=== PATIENT | male | born 1945 | race Caucasian/White ===

== ENCOUNTER 2023-03-28 18:19 | Emergency (ER) | payer MEDICARE, OTHER, SELFPAY ==
[2023-03-28 18:29] VITALS: BP 140/89; PULSE 64; RESP 14; TEMP 36.8; O2SAT 98; BMI 28.5
--- NOTE | 2023-03-28 18:39 | CT_ITS ---
The [address] [address] Patient Name: NORA SHAH MRN: [id number] date: 1945 Sex: M Assigned Patient Location: ER Current Patient Location: ED.MAIN Accession/Order Number: [id number] Exam Date: 03/28/2023 18:45 Report Date: 03/28/2023 20:02 At the request of: BALDO EARZO Procedure: CT head/brain wo con CT head/brain wo con, 03/28/2023 6:45 PM EDT INDICATION: head injury COMPARISON: None. TECHNIQUE: Axial CT images of the brain from skull base to vertex, including portions of the face and sinuses, were obtained without contrast. Multiplanar reformatted images were generated and reviewed as needed. Dose reduction techniques were achieved by using automated exposure control and/or adjustment of mA and/or kV according to patient size and/or use of iterative reconstruction technique. FINDINGS: CEREBRUM: Age-appropriate atrophy is present, without visible acute hemorrhage or lesion. CEREBELLUM: No edema, hemorrhage, mass, acute infarction, or inappropriate atrophy. BRAINSTEM: No acute infarct, hemorrhage or gross structural abnormality. CSF SPACES: Ventricles, cisterns, and sulci are appropriate for age. No hydrocephalus, subarachnoid hemorrhage, or mass. SKULL: No mass or other significant visible lesion. SINUSES: There is mucosal thickening within the bilateral ethmoid air cells. ORBITS: Limited views are unremarkable. OTHER: None. IMPRESSION: Age-appropriate atrophy. Mucosal thickening within the bilateral ethmoid air cells consistent with sinusitis. No acute intracranial abnormality is otherwise identified. Electronically authenticated by: Ysabel RADER Date: 03/28/2023 20:02
--- NOTE | 2023-03-28 19:05 | ED.HEATRA1 ---
HPI - Head Injury General Chief complaint: Head Injury Stated complaint: HEAD LACERATION Time Seen by Provider: 03/28/23 19:05 Source: patient Mode of arrival: walk-in History of Present Illness HPI Narrative: pt Related Data Home Medications Medication Instructions Recorded Confirmed rivaroxaban 10 mg tablet (Xarelto) 10 mg PO DAILY 03/28/23 03/28/23 Allergies Allergy/AdvReac Type Severity Reaction Status Date / Time oxycodone Allergy Severe Verified 03/28/23 18:28 Exam Constitutional Vital Signs - 24 hr 03/28/23 18:29 Temperature 98.2 F Pulse Rate [Monitor] 64 Respiratory Rate 14 Blood Pressure [Left Arm] 140/89 H Pulse Oximetry 98 Oxygen Delivery Method Room Air Course Vital Signs Vital signs: Vital Signs Temperature 98.2 F 03/28/23 18:29 Pulse Rate 64 03/28/23 18:29 Respiratory Rate 14 03/28/23 18:29 Blood Pressure 140/89 H 03/28/23 18:29 Pulse Oximetry 98 03/28/23 18:29 Oxygen Delivery Method Room Air 03/28/23 18:29 Temperature 98.2 F 03/28/23 18:29 Pulse Rate 64 03/28/23 18:29 Respiratory Rate 14 03/28/23 18:29 Blood Pressure 140/89 H 03/28/23 18:29 Pulse Oximetry 98 03/28/23 18:29 Oxygen Delivery Method Room Air 03/28/23 18:29 Discharge Plan Discharge Chief Complaint: Head Injury Prescriptions / Home Meds: No Action Xarelto 10 mg tablet 10 mg PO DAILY Referrals: Physician,Non-Staff, MD [Primary Care Provider] - 1 week
[2023-03-28] MEDS: ADACEL DIPH,PERTUSS(ACELL),TET VAC/PF 0.5 ML ADULT SYRINGE IM (19:48)
--- NOTE | 2023-03-29 05:19 | ED.HEATRA1 ---
HPI - Head Injury General Chief complaint: Head Injury Stated complaint: HEAD LACERATION Time Seen by Provider: 03/28/23 19:05 Source: patient Mode of arrival: walk-in History of Present Illness HPI Narrative: the patient take care and sent also for his history of atrial fibrillation, after a table so fell down on the back of his head almost an hour before arrival while he was working in the garage, he denies any loss of consciousness he did had some bleeding from the injury and he does not remember the last time he had a tetanus booster Review of systems otherwise negative Related Data Home Medications Medication Instructions Recorded Confirmed rivaroxaban 10 mg tablet (Xarelto) 10 mg PO DAILY 03/28/23 03/28/23 Allergies Allergy/AdvReac Type Severity Reaction Status Date / Time oxycodone Allergy Severe Verified 03/28/23 18:28 Review of Systems ROS Status of ROS 10 or more systems reviewed and unremarkable except as noted in history and below Exam Narrative Exam Narrative: Nurses notes and vital signs reviewed and patient is not hypoxic. General: Well-appearing and in no apparent distress. Skin: Warm, dry, no pallor noted. No rash. Head: Normocephalic, and the back of the skull at the upper occipital area the patient have a laceration that is 3.5 cm linear, clean only cutting through the skin layer with no exposure of the underlying structures, no foreign body Neck: Supple, non-tender. Eye: Pupils are equal, round and EOMI. No scleral icterus. Ears, Nose, Mouth, and Throat: TM are clear, no nasal mucosal hypertrophy. Oral mucosa is moist, no posterior oropharynx erythema, uvula is mid-line Cardiovascular: Regular Rate and Rhythm without murmur, gallop or rub. Respiratory: No accessory muscle use or respiratory distress. Lungs are clear to auscultation, no wheezing, rales or rhonchi Chest Wall: no tenderness Back: No midline thoracic or lumbar vertebral tenderness. No CVA tenderness Musculoskeletal: normal ROM, no calf or popliteal tenderness, no lower extremity edema/swelling GI: Abdomen is soft, non-distended. Normal bowel sounds. No masses appreciated. No tenderness to palpation. No rebound, guarding, or rigidity noted. Neurological: A&O x4. No cranial nerve dysfunction observed. No truncal ataxia. Moves all extremities. Sensation intact. Psychiatric: Cooperative and interactive. Normal mood and affect. Constitutional Vital Signs - 24 hr 03/28/23 18:29 Temperature 98.2 F Pulse Rate [Monitor] 64 Respiratory Rate 14 Blood Pressure [Left Arm] 140/89 H Pulse Oximetry 98 Oxygen Delivery Method Room Air Course Vital Signs Vital signs: Vital Signs Temperature 98.2 F 03/28/23 18:29 Pulse Rate 64 03/28/23 18:29 Respiratory Rate 14 03/28/23 18:29 Blood Pressure 140/89 H 03/28/23 18:29 Pulse Oximetry 98 03/28/23 18:29 Oxygen Delivery Method Room Air 03/28/23 18:29 Temperature 98.2 F 03/28/23 18:29 Pulse Rate 64 03/28/23 18:29 Respiratory Rate 14 03/28/23 18:29 Blood Pressure 140/89 H 03/28/23 18:29 Pulse Oximetry 98 03/28/23 18:29 Oxygen Delivery Method Room Air 03/28/23 18:29 MDM - Head Injury MDM Narrative Medical decision making narrative: after cleaning the wound thoroughly with Betadine as well as normal saline the patient had four cindy applied Wound care advised and the patient also was provided with Tylenol for the pain The patient also had a tetanus booster Because of the patient history of head injury with the results with the patient was instructed for concussion precaution for the next few hours in addition to follow up CT had two more in the Emergency Department the patient otherwise to come back to the Emergency Room in case of any new symptoms if any symptoms of headache diffuse evidence of consciousness nausea or vomiting happened before his follow-up Discharge Plan Discharge Chief Complaint: Head Injury Clinical Impression: Concussion without loss of consciousness, Closed head injury Patient Disposition: Home, Self-Care Time of Disposition Decision: 20:28 Condition: Good Prescriptions / Home Meds: No Action Xarelto 10 mg tablet 10 mg PO DAILY Instructions: Concussion (ED), Head Injury (ED), Staple Care (ED) Stand Alone Forms: Portal Instructions Referrals: Barbie Swanson MD [Emergency Provider] - 1 week Physician,Non-Staff, [Primary Care Provider] - 1 week Discharge Date/Time: 03/28/23 20:52
== END 2023-03-28 20:52 | disposition home or self-care (01) ==
PROVIDERS: Emergency Provider Emergency Medicine
DX: S09.8XXA Other specified injuries of head, initial encounter (principal); S06.0X0A Concussion without loss of consciousness, initial encounter; S01.01XA Laceration without foreign body of scalp, initial encounter; W20.8XXA Other cause of strike by thrown, projected or falling object, initial encounter; Z23 Encounter for immunization; I48.91 Unspecified atrial fibrillation; Z79.01 Long term (current) use of anticoagulants
CPT/HCPCS: 12002; 70450; 90471; 90715; 99284

== ENCOUNTER 2023-03-29 19:06 | Emergency (ER) | payer MEDICARE, OTHER, SELFPAY ==
[2023-03-29 19:11] VITALS: BP 122/70; PULSE 68; RESP 14; TEMP 36.9; O2SAT 96; BMI 62.0
--- NOTE | 2023-03-29 19:20 | CT_ITS ---
[address] [address] Patient Name: NORA SHAH MRN: [id number] date: 1945 Sex: M Assigned Patient Location: ER Current Patient Location: Accession/Order Number: [id number] Exam Date: 03/29/2023 19:55 Report Date: 03/29/2023 20:40 At the request of: SCARLET MEJIA Procedure: CT head/brain wo con EXAM: CT head/brain wo con REASON FOR EXAM: Male, 77 years, head trauma follow up. TECHNIQUE: Computed tomography of the head is performed in the axial projection from the base of the skull to the vertex. Sagittal and coronal reconstructed images are performed. Dose reduction techniques were achieved by using automated exposure control and/or adjustment of mA and/or KVP according to patient size and/or use of iterative reconstruction technique. COMPARISON: 03/28/2023. FINDINGS: Atherosclerotic vascular calcifications are seen. Normal calvarium. There is mild prominence to the ventricles and sulci consistent with chronic cerebral volume loss. Normal brain parenchyma. Normal basal ganglia. Normal brainstem. The cerebellum is normal. There is no evidence for acute ischemia. There is no evidence for acute hemorrhage. The visualized paranasal sinuses are clear. IMPRESSION: Mild chronic involutional changes. No acute intracranial abnormality. Electronically authenticated by: PRICE THOMPSON Date: 03/29/2023 20:40
--- NOTE | 2023-03-29 20:30 | ED.HEATRA1 ---
HPI - Head Injury General Chief complaint: Head Injury Stated complaint: RECHECK HEAD INJURY Time Seen by Provider: 03/29/23 19:19 Source: patient Mode of arrival: walk-in History of Present Illness HPI Narrative: the patient's coming to the Emergency Room after he had hit his head yesterday evening with a table saw that fell on his head while he was in the garage, he is coming today as a follow-upp as instructed to do a CT head because it is anticoagulation intake he denies any nausea vomiting or headache have soreness only of the site of the injury Review of systems otherwise negative Related Data Home Medications Medication Instructions Recorded Confirmed rivaroxaban 10 mg tablet (Xarelto) 10 mg PO DAILY 03/28/23 03/28/23 Allergies Allergy/AdvReac Type Severity Reaction Status Date / Time oxycodone Allergy Severe Verified 03/28/23 18:28 Review of Systems ROS Status of ROS 10 or more systems reviewed and unremarkable except as noted in history and below Exam Narrative Exam Narrative: Nurses notes and vital signs reviewed and patient is not hypoxic. General: Well-appearing and in no apparent distress. Skin: Warm, dry, no pallor noted. No rash. Head: Normocephalic,dressing clean from yesterday's injury Neck: Supple, non-tender. Eye: Pupils are equal, round and EOMI. No scleral icterus. Ears, Nose, Mouth, and Throat: TM are clear, no nasal mucosal hypertrophy. Oral mucosa is moist, no posterior oropharynx erythema, uvula is mid-line Cardiovascular: Regular Rate and Rhythm without murmur, gallop or rub. Respiratory: No accessory muscle use or respiratory distress. Lungs are clear to auscultation, no wheezing, rales or rhonchi Chest Wall: no tenderness Back: No midline thoracic or lumbar vertebral tenderness. No CVA tenderness Musculoskeletal: normal ROM, no calf or popliteal tenderness, no lower extremity edema/swelling GI: Abdomen is soft, non-distended. Normal bowel sounds. No masses appreciated. No tenderness to palpation. No rebound, guarding, or rigidity noted. Neurological: A&O x4. No cranial nerve dysfunction observed. No truncal ataxia. Moves all extremities. Sensation intact. Psychiatric: Cooperative and interactive. Normal mood and affect. Constitutional Vital Signs - 24 hr 03/29/23 19:11 03/29/23 20:50 Temperature 98.4 F Pulse Rate [Monitor] 68 60 Respiratory Rate 14 16 Blood Pressure [Left Arm] 122/70 H 140/97 H Pulse Oximetry 96 97 Oxygen Delivery Method Room Air Room Air Course Vital Signs Vital signs: Vital Signs Temperature 98.4 F 03/29/23 19:11 Pulse Rate 68 03/29/23 19:11 Respiratory Rate 14 03/29/23 19:11 Blood Pressure 122/70 H 03/29/23 19:11 Pulse Oximetry 96 03/29/23 19:11 Oxygen Delivery Method Room Air 03/29/23 19:11 Temperature 98.4 F 03/29/23 19:11 Pulse Rate 60 03/29/23 20:50 Respiratory Rate 16 03/29/23 20:50 Blood Pressure 140/97 H 03/29/23 20:50 Pulse Oximetry 97 03/29/23 20:50 Oxygen Delivery Method Room Air 03/29/23 20:50 MDM - Head Injury MDM Narrative Medical decision making narrative: the patient is coming today as instructed for a follow up CAT scan brain and his age and intake of Xerlato with the mechanism of injury ( saw falling on his head from height ) putting him at risk of intracranial bleeding patient does not have any significant complaints since yesterday and his CT head is negative for any acute intracranial pathology he will continue with the wound care and continue monitoring The patient is to followup with primary care physician in next 2-3 days or to return to the emergency department should any of the signs or symptoms worsen or new symptoms develop. The patient agrees with the following Diagnosis and Treatment plan and the patient will be discharged home. Discharge Plan Discharge Chief Complaint: Head Injury Clinical Impression: Concussion without loss of consciousness Patient Disposition: Home, Self-Care Time of Disposition Decision: 20:56 Mode of Transportation: Private Vehicle Prescriptions / Home Meds: No Action Xarelto 10 mg tablet 10 mg PO DAILY Instructions: Head Injury (ED) Stand Alone Forms: Portal Instructions Referrals: Physician,Non-Staff, MD [Primary Care Provider] - 1 week Discharge Date/Time: 03/29/23 21:30
[2023-03-29 20:50] VITALS: BP 140/97; PULSE 60; RESP 16; O2SAT 97
== END 2023-03-29 21:30 | disposition home or self-care (01) ==
PROVIDERS: Emergency Provider Emergency Medicine
DX: S06.0X0A Concussion without loss of consciousness, initial encounter (principal); W20.8XXA Other cause of strike by thrown, projected or falling object, initial encounter
CPT/HCPCS: 70450; 99284

== ENCOUNTER 2023-04-18 15:32 | Emergency (ER) | payer MEDICARE, OTHER, SELFPAY ==
[2023-04-18 15:41] VITALS: BP 142/8; PULSE 84; RESP 16; TEMP 36.8; O2SAT 98; BMI 27.2
--- NOTE | 2023-04-18 16:05 | XR_ITS ---
The [address] [address] Patient Name: NORA SHAH MRN: [id number] date: 1945 Sex: M Assigned Patient Location: ER Current Patient Location: ED.MAIN Accession/Order Number: [id number] Exam Date: 04/18/2023 16:18 Report Date: 04/18/2023 16:56 At the request of: ELOY WHALEY Procedure: XR acute abdomen series EXAMINATION: XR acute abdomen series HISTORY: Diarrhea COMPARISON: None. TECHNIQUE: AP chest and 3 views of the abdomen FINDINGS: The lung parenchyma is free of consolidation or infiltrate. No pneumothorax or pleural effusion. The cardiac, mediastinal and hilar contours are normal. Status post left-sided cardiac pacemaker The bowel gas pattern is nonobstructed. No free intraperitoneal air or intra-abdominal calcification. Surgical clips within the right upper quadrant. Lumbosacral instrumentation. The visualized osseous structures exhibit no gross abnormality. IMPRESSION: No visualized acute abnormality Electronically authenticated by: YAYA TAYLOR Date: 04/18/2023 16:56
[2023-04-18 16:16] LABS: Basophils Percent Auto 0.4 % (0.2-2.0); Eosinophils Absolute Auto 0.4 10^3/uL (0.0-0.7); Eosinophils Percent Auto 4.6 % (0.9-7.0); Hematocrit 37.9 % (42.0-54.0); Hemoglobin 12.7 g/dL (14.0-18.0); Immature Granulocytes Abs Auto 0.02 10^3/uL (0.00-0.03); Immature Granulocytes Pct Auto 0.3 % (0.0-0.5); Lymphocytes Absolute Auto 2.1 10^3/uL (1.2-3.8); Lymphocytes Percent Auto 26.5 % (20.5-60.0); Mean Corpuscular HGB Conc 33.5 g/dL (29.9-35.2); Mean Corpuscular Hemoglobin 31.4 pg (25.9-34.0); Mean Corpuscular Volume 93.8 fL (80.0-94.0); Mean Platelet Volume 10.3 fL (9.5-13.5); Monocytes Absolute Auto 0.8 10^3/uL (0.3-0.8); Monocytes Percent Auto 10.6 % (1.7-12.0); Neutrophils Absolute Auto 4.5 10^3/uL (1.4-6.5); Neutrophils Percent Auto 57.6 % (43.0-75.0); Platelet Count 192 10^3/uL (150-450); Red Blood Count 4.04 10^6/uL (4.70-6.10); Red Cell Distribution Width 12.5 % (11.0-15.0); White Blood Count 7.9 10^3/uL (4.0-11.0)
[2023-04-18 16:26] LABS: Alanine Aminotransferase 27 U/L (16-63); Albumin Globulin Ratio 0.9; Albumin Level 3.8 g/dL (3.4-5.0); Alkaline Phosphatase 94 U/L (46-116); Aspartate Amino Transferase 19 U/L (15-37); BUN Creatinine Ratio 21.1; Bilirubin Total 0.6 mg/dL (0.2-1.0); Calcium 9.1 mg/dL (8.5-10.1); Carbon Dioxide 24.6 mmol/L (21.0-32.0); Chloride 104 mmol/L (98-107); Estimated GFR (African America >60 (>=60); Estimated GFR (Non-African Ame >60 (>=60); Globulin 4.1 g/dL; Glucose 94 mg/dL (74-106); Potassium 3.6 mmol/L (3.5-5.1); Sodium 141 mmol/L (136-145); Total Protein 7.9 g/dL (6.4-8.2)
--- NOTE | 2023-04-18 16:35 | ED.GENADUL1 ---
HPI - General Adult General Chief complaint: Nausea/Vomiting/Diarrhea Stated complaint: DIARRHEA Time Seen by Provider: 04/18/23 16:04 Mode of arrival: walk-in History of Present Illness HPI narrative: patient had 5 days of diarrhea and then it went away. he went to a restaurant and had a hamburger stormy that was like shoe leather along with a piece of cheese and a salad. A few hours later he had diarrhea. He wanted tot francisco an OTC anti-diarrheal but it said not to if you are taking blood thinners, which he is. He has some mild lower abdominal cramping. No fever or chills and no nausea, vomiting or flank pain. Related Data Home Medications Medication Instructions Recorded Confirmed rivaroxaban 10 mg tablet (Xarelto) 10 mg PO DAILY 03/28/23 03/28/23 finasteride 5 mg tablet 5 mg PO DAILY 04/18/23 04/18/23 methocarbamol 750 mg tablet 750 mg PO TID 04/18/23 04/18/23 metoprolol succinate 25 mg 25 mg PO DAILY 04/18/23 04/18/23 tablet,extended release 24 hr pantoprazole 40 mg tablet,delayed 40 mg PO DAILY 04/18/23 04/18/23 release sertraline 100 mg tablet 100 mg PO DAILY 04/18/23 04/18/23 tamsulosin 0.4 mg capsule 0.8 mg PO DAILY 04/18/23 04/18/23 Allergies Allergy/AdvReac Type Severity Reaction Status Date / Time oxycodone Allergy Severe Verified 03/28/23 18:28 Exam Narrative Exam Narrative: Nurses notes and vital signs reviewed and patient is not hypoxic. afebrile General: Well-appearing and in no apparent distress. Skin: Warm, dry, no pallor noted. Head: Normocephalic, atraumatic. Eye: Pupils are equal, round and EOMI. No scleral icterus. Ears, Nose, Mouth, and Throat: Oral mucosa is moist Cardiovascular: Regular Rate and Rhythm without murmur, gallop or rub. Respiratory: No accessory muscle use or respiratory distress. Lungs are clear to auscultation, no wheezing, rales or rhonchi Back: No CVA tenderness Musculoskeletal: normal ROM, no lower extremity edema/swelling GI: Abdomen is soft, non-distended. Normal bowel sounds. No tenderness to palpation. No rebound, guarding, or rigidity noted. Neurological: A&O x4. No cranial nerve dysfunction observed. No truncal ataxia. Moves all extremities. Sensation intact. Psychiatric: Cooperative and interactive. Normal mood and affect. Constitutional Vital Signs - 24 hr 04/18/23 15:41 Temperature 98.2 F Pulse Rate [Monitor] 84 Respiratory Rate 16 Blood Pressure [Right Arm] 142/8 H Pulse Oximetry 98 Oxygen Delivery Method Room Air Course Vital Signs Vital signs: Vital Signs Temperature 98.2 F 04/18/23 15:41 Pulse Rate 84 04/18/23 15:41 Respiratory Rate 16 04/18/23 15:41 Blood Pressure 142/8 H 04/18/23 15:41 Pulse Oximetry 98 04/18/23 15:41 Oxygen Delivery Method Room Air 04/18/23 15:41 Temperature 98.2 F 04/18/23 15:41 Pulse Rate 84 04/18/23 15:41 Respiratory Rate 16 04/18/23 15:41 Blood Pressure 142/8 H 04/18/23 15:41 Pulse Oximetry 98 04/18/23 15:41 Oxygen Delivery Method Room Air 04/18/23 15:41 Medical Decision Making MDM Narrative Medical decision making narrative: Patient was placed on alarm security or surveillance monitor and EKG obtained. Blood drawn and sent for evaluation. abdominal and chest x-rays obtained. aside from a slight elevation patient's BUN, the blood testing was unremarkable. X-rays just showed nonspecific bowel gas pattern. the patient was informed of results, given reassurance and discharged home. We discussed a soft bland diet until his diarrhea subsides. I cautioned him against taking [id number] antidiarrheals since he is taking blood thinners. He can see his primary care physician for follow-up or return to the emergency department if he worsens. Lab Data Lab results reviewed: Yes I reviewed the patient's lab results Labs: Lab Results 04/18/23 Range/Units 15:47 WBC 7.9 (4.0-11.0) 10^3/uL RBC 4.04 L (4.70-6.10) 10^6/uL Hgb 12.7 L (14.0-18.0) g/dL Hct 37.9 L (42.0-54.0) % MCV 93.8 (80.0-94.0) fL MCH 31.4 (25.9-34.0) pg MCHC 33.5 (29.9-35.2) g/dL RDW 12.5 (11.0-15.0) % Plt Count 192 (150-450) 10^3/uL MPV 10.3 (9.5-13.5) fL Neut % (Auto) 57.6 (43.0-75.0) % Lymph % (Auto) 26.5 (20.5-60.0) % Mason % (Auto) 10.6 (1.7-12.0) % Eos % (Auto) 4.6 (0.9-7.0) % Baso % (Auto) 0.4 (0.2-2.0) % Neut # (Auto) 4.5 (1.4-6.5) 10^3/uL Lymph # (Auto) 2.1 (1.2-3.8) 10^3/uL Mason # (Auto) 0.8 (0.3-0.8) 10^3/uL Eos # (Auto) 0.4 (0.0-0.7) 10^3/uL Baso # (Auto) 0.0 (0.0-0.1) 10^3/uL Abs Immat Gran (auto) 0.02 (0.00-0.03) 10^3/uL Imm/Tot Granulo (auto) 0.3 (0.0-0.5) % Sodium 141 (136-145) mmol/L Potassium 3.6 (3.5-5.1) mmol/L Chloride 104 (98-107) mmol/L Carbon Dioxide 24.6 (21.0-32.0) mmol/L Anion Gap 16.0 BUN 19.0 H (7.0-18.0) mg/dL Creatinine 0.90 (0.70-1.30) mg/dL Est GFR ( Amer) >60 (>=60) Est GFR (Non-Af Amer) >60 (>=60) BUN/Creatinine Ratio 21.1 Glucose 94 (74-106) mg/dL Calcium 9.1 (8.5-10.1) mg/dL Total Bilirubin 0.6 (0.2-1.0) mg/dL AST 19 (15-37) U/L ALT 27 (16-63) U/L Alkaline Phosphatase 94 (46-116) U/L Total Protein 7.9 (6.4-8.2) g/dL Albumin 3.8 (3.4-5.0) g/dL Globulin 4.1 g/dL Albumin/Globulin Ratio 0.9 Imaging Data Abdominal x-ray: Attestation: I personally reviewed and interpreted this imaging study as follows: My impression: unremarkable bowel gas pattern without any acute findings. Chest reveals pacemaker but no acute cardiopulmonary abnormality. Discharge Plan Discharge Chief Complaint: Nausea/Vomiting/Diarrhea Clinical Impression: Diarrhea Patient Disposition: Home, Self-Care Time of Disposition Decision: 16:40 Prescriptions / Home Meds: No Action Xarelto 10 mg tablet 10 mg PO DAILY finasteride 5 mg tablet 5 mg PO DAILY methocarbamol 750 mg tablet 750 mg PO TID metoprolol succinate 25 mg tablet extended release 24 hr 25 mg PO DAILY sertraline 100 mg tablet 100 mg PO DAILY pantoprazole 40 mg tablet,delayed release (DR/EC) 40 mg PO DAILY tamsulosin 0.4 mg capsule 0.8 mg PO DAILY Instructions: Acute Diarrhea (ED) Stand Alone Forms: Portal Instructions Referrals: Physician,Non-Staff, MD [Primary Care Provider] - 1 week
[2023-04-18 17:03] VITALS: BP 130/74; PULSE 64; RESP 16; O2SAT 98
[2023-04-18 17:49] LABS: Adenovirus F 40/41 NOT DETECTED (NOT DETECTE); Astrovirus NOT DETECTED (NOT DETECTE); Campylobacter NOT DETECTED (NOT DETECTE); Cryptosporidium NOT DETECTED (NOT DETECTE); Cyclospora cayetanensis NOT DETECTED (NOT DETECTE); E coli 0157 NOT DETECTED (NOT DETECTE); Entamoeba histolytica NOT DETECTED (NOT DETECTE); Enteroaggregative E.coli NOT DETECTED (NOT DETECTE); Enteropathogenic E.coli NOT DETECTED (NOT DETECTE); Enterotoxigenic E. coli NOT DETECTED (NOT DETECTE); Giardia lamblia NOT DETECTED (NOT DETECTE); Norovirus GI/GII NOT DETECTED (NOT DETECTE); Plesiomonas shigelloides NOT DETECTED (NOT DETECTE); Rotavirus A NOT DETECTED (NOT DETECTE); Salmonella NOT DETECTED (NOT DETECTE); Sapovirus NOT DETECTED (NOT DETECTE); Shiga-like toxin-producing E.C NOT DETECTED (NOT DETECTE); Shigella/Enteroinvasive E.coli NOT DETECTED (NOT DETECTE); Vibrio NOT DETECTED (NOT DETECTE); Vibrio cholerae NOT DETECTED (NOT DETECTE); Yersinia enterocolitica NOT DETECTED (NOT DETECTE)
== END 2023-04-18 17:07 | disposition home or self-care (01) ==
PROVIDERS: Emergency Provider Emergency Medicine
DX: R19.7 Diarrhea, unspecified (principal); Z79.899 Other long term (current) drug therapy; Z79.01 Long term (current) use of anticoagulants
CPT/HCPCS: 36415; 74022; 80053; 85025; 87507; 99285

== ENCOUNTER 2023-11-29 08:07 | Emergency (ER) | payer MEDICARE, OTHER, SELFPAY ==
[2023-11-29 08:09] VITALS: BP 149/94; PULSE 71; RESP 18; TEMP 37.3; O2SAT 96; BMI 25.4
[2023-11-29 08:26] LABS: Basophils Absolute Auto 0.1 10^3/uL (0.0-0.1); Basophils Percent Auto 0.4 % (0.2-2.0); Eosinophils Absolute Auto 0.1 10^3/uL (0.0-0.7); Eosinophils Percent Auto 0.8 % (0.9-7.0); Hematocrit 37.8 % (42.0-54.0); Hemoglobin 12.5 g/dL (14.0-18.0); Immature Granulocytes Abs Auto 0.04 10^3/uL (0.00-0.03); Immature Granulocytes Pct Auto 0.3 % (0.0-0.5); Lymphocytes Absolute Auto 2.3 10^3/uL (1.2-3.8); Mean Corpuscular HGB Conc 33.1 g/dL (29.9-35.2); Mean Corpuscular Volume 93.8 fL (80.0-94.0); Mean Platelet Volume 10.2 fL (9.5-13.5); Monocytes Percent Auto 8.9 % (1.7-12.0); Neutrophils Percent Auto 69.6 % (43.0-75.0); Platelet Count 177 10^3/uL (150-450); Red Blood Count 4.03 10^6/uL (4.70-6.10); Red Cell Distribution Width 12.3 % (11.0-15.0); White Blood Count 11.5 10^3/uL (4.0-11.0)
--- NOTE | 2023-11-29 08:26 | ECG_ITS ---
The [facility] Test Date: 2023-11-29 Pat Name: NORA SHAH Department: Room: - Gender: Male All Purpose Clerk: : 1945 Requested By: Order Number: [id number] Reading MD: JANICE VIGIL Measurements Intervals [place] Rate: 63 P: -[address] [place]: 200 QRS: 18 QRSD: 84 T: 4 QT: 390 QTc: 397 Interpretive Statements Supraventricular rhythm - questionable atrial paced rhythm vs sinus w/ first degree AV block Low voltaga across the precordium Nonspecific ST/T wave changes 9140 abnormal rhythm ECG No previous ECG available for comparison Electronically Signed On 11-30-2023 6:47:41 EST by JANICE VIGIL
--- NOTE | 2023-11-29 08:26 | CT_ITS ---
The [address] [address] Patient Name: NORA SHAH MRN: [id number] date: 1945 Sex: M Assigned Patient Location: ER Current Patient Location: Accession/Order Number: [id number] Exam Date: 11/29/2023 08:54 Report Date: 11/29/2023 09:41 At the request of: SCARLET MEJIA Procedure: CT chest wo con CT chest wo con, 11/29/2023 8:54 AM EST INDICATION: Pain COMPARISON: No prior CT scan of the chest available for comparison at the time of this dictation. TECHNIQUE: Thin-section axial CT images of the chest were acquired without contrast. Supplemental 2D reformatted images were generated and reviewed as needed. Dose reduction techniques were achieved by using automated exposure control and/or adjustment of mA and/or kV according to patient size and/or use of iterative reconstruction technique. FINDINGS: Heart is upper limits of normal for size. No pericardial effusion. Left subclavian CIED. Heavy coronary artery calcification and calcified atherosclerotic change within the aorta. No aortic aneurysm. Calcified left hilar lymph nodes and parenchymal granuloma left lung. No mediastinal or axillary lymphadenopathy. Dependent groundglass opacity and mild dependent consolidation within the lower lobes bilaterally. Trace focal loculated left pleural effusion. No pneumothorax. Small fat-containing right posterior diaphragmatic hernia. Small sliding hiatal hernia. Calcified splenic granulomas. No acute fracture. Spondylosis with mild dextroscoliosis. CT/CT chest wo con IMPRESSION: 1. Mild bilateral lower lobe consolidation with trace loculated left pleural effusion 2. Small right fat-containing Bochdalek hernia. Electronically authenticated by: WILILE DIEHL Date: 11/29/2023 09:41
[2023-11-29] MEDS: KETOROLAC TROMETHAMINE 30 MG/ML VIAL 15 MG IVP (08:38)
[2023-11-29] MEDS: FAMOTIDINE/PF 20 MG/2 ML VIAL IV (08:38)
[2023-11-29] MEDS: ORPHENADRINE 60 MG/ 2 ML VIAL 30 MG IV (08:38)
[2023-11-29 08:42] LABS: Alanine Aminotransferase 27 U/L (16-63); Albumin Globulin Ratio 0.9; Albumin Level 3.6 g/dL (3.4-5.0); Alkaline Phosphatase 116 U/L (46-116); Anion Gap 11.3; Aspartate Amino Transferase 18 U/L (15-37); Bilirubin Total 0.6 mg/dL (0.2-1.0); Calcium 9.3 mg/dL (8.5-10.1); Carbon Dioxide 30.7 mmol/L (21.0-32.0); Chloride 101 mmol/L (98-107); Estimated GFR (African America >60 (>=60); Estimated GFR (Non-African Ame >60 (>=60); Globulin 4.2 g/dL; Glucose 123 mg/dL (74-106); Sodium 139 mmol/L (136-145); Total Protein 7.8 g/dL (6.4-8.2)
[2023-11-29 08:44] LABS: Troponin I High Sensitivity 6.9 pg/mL (4.0-76.1)
[2023-11-29 09:08] VITALS: PULSE 63; RESP 16
[2023-11-29 09:09] VITALS: BP 134/81; PULSE 61; RESP 11; O2SAT 93
[2023-11-29 09:10] VITALS: PULSE 61; RESP 22; O2SAT 93
--- NOTE | 2023-11-29 10:16 | ED.BACK1 ---
HPI - Back Pain/Injury General Chief Complaint: Back Pain/Injury Stated Complaint: back pain Time Seen by Provider: 11/29/23 08:12 Source: patient Mode of arrival: Wheelchair Limitations: no limitations History of Present Illness HPI Narrative: Patient presenting to us with a left upper posterior Chest wall pain that started last night, the patient mentioned that the pain started all of a sudden associated with no coughing no fever but he mentioned that the pain gets worse whenever he can lay in his back as well as take a deep breath there was no fever no chills no nausea no vomiting. The patient have no sweating he mentioned that he could not lay on his back in a comfortable position because of the pain, he denies any dysuria or any pain down his leg. The patient mentioned that he have a history of kidney stone but this pain is different than the last time he had a kidney stone problem. No history of immobilization and no history of long trips . Related Data Home Medications Medication Instructions Recorded Confirmed rivaroxaban 10 mg tablet (Xarelto) 20 mg PO DAILY 03/28/23 11/29/23 finasteride 5 mg tablet 5 mg PO DAILY 04/18/23 11/29/23 metoprolol succinate 25 mg 25 mg PO DAILY 04/18/23 11/29/23 tablet,extended release 24 hr sertraline 100 mg tablet 100 mg PO DAILY 04/18/23 11/29/23 tamsulosin 0.4 mg capsule 0.8 mg PO DAILY 04/18/23 11/29/23 albuterol sulfate 90 mcg/actuation 2 inh inhalation Q4H PRN shortness 11/29/23 11/29/23 aerosol inhaler of breath or wheezing cholecalciferol (vitamin D3) 10 10 mcg PO DAILY 11/29/23 11/29/23 mcg (400 unit) capsule (Vitamin D3) esomeprazole magnesium 40 mg 40 mg PO Q24H 11/29/23 11/29/23 capsule,delayed release famotidine 20 mg tablet 20 mg PO Q12H PRN abdominal 11/29/23 11/29/23 discomfort fluticasone furoate 100 1 inh inhalation Q24H 11/29/23 11/29/23 mcg/actuation blister powder for inhalation (Arnuity Ellipta) lysine 500 mg tablet (L-Lysine) 1,000 mg PO DAILY 11/29/23 11/29/23 Previous Rx's Medication Instructions Recorded azithromycin 250 mg tablet See Rx Instructions PO .COMPLEX #6 11/29/23 (Zithromax Z-Lui) tabs orphenadrine citrate 100 mg 100 mg PO BID PRN muscle spasm 11/29/23 tablet,extended release #10 tabs prednisone 20 mg tablet 40 mg (2 x 20 mg) PO DAILY 5 days 11/29/23 #10 tabs Allergies Allergy/AdvReac Type Severity Reaction Status Date / Time oxycodone Allergy Severe Verified 03/28/23 18:28 Review of Systems ROS Status of ROS 10 or more systems reviewed and unremarkable except as noted in history and below Exam Narrative Exam Narrative: Nurses notes and vital signs reviewed and patient is not hypoxic. General: Well-appearing and in no apparent distress. Skin: Warm, dry, no pallor noted. No rash. Head: Normocephalic, atraumatic. Neck: Supple, non-tender. Eye: Pupils are equal, round and EOMI. No scleral icterus. Ears, Nose, Mouth, and Throat: TM are clear, no nasal mucosal hypertrophy. Oral mucosa is moist, no posterior oropharynx erythema, uvula is mid-line Cardiovascular: Regular Rate and Rhythm without murmur, gallop or rub. Respiratory: No accessory muscle use or respiratory distress. Lungs are clear to auscultation, no wheezing, rales or rhonchi Chest Wall: There is tenderness upon palpation of the left posterior mid chest with no signs of trauma and no infiltrates and no skin rashes Back: No midline thoracic or lumbar vertebral tenderness. No CVA tenderness Musculoskeletal: normal ROM, no calf or popliteal tenderness, no lower extremity edema/swelling GI: Abdomen is soft, non-distended. Normal bowel sounds. No masses appreciated. No tenderness to palpation. No rebound, guarding, or rigidity noted. Neurological: A&O x4. No cranial nerve dysfunction observed. No truncal ataxia. Moves all extremities. Sensation intact. Psychiatric: Cooperative and interactive. Normal mood and affect. Constitutional Vital Signs, click to edit/add: Last Vital Signs Temp 99.1 F 11/29/23 08:09 Pulse 61 11/29/23 09:10 Resp 22 11/29/23 09:10 BP 134/81 11/29/23 09:09 Pulse Ox 93 L 11/29/23 09:10 O2 Del Method Room Air 11/29/23 08:09 Course Vital Signs Vital signs: Vital Signs Temperature 99.1 F 11/29/23 08:09 Pulse Rate 71 11/29/23 08:09 Respiratory Rate 18 11/29/23 08:09 Blood Pressure 149/94 H 11/29/23 08:09 Pulse Oximetry 96 11/29/23 08:09 Oxygen Delivery Method Room Air 11/29/23 08:09 Temperature 99.1 F 11/29/23 08:09 Pulse Rate 61 11/29/23 09:10 Respiratory Rate 22 11/29/23 09:10 Blood Pressure 134/81 11/29/23 09:09 Pulse Oximetry 93 L 11/29/23 09:10 Oxygen Delivery Method Room Air 11/29/23 08:09 MDM - Back Pain/Injury MDM Narrative Medical decision making narrative: The patient is coming to the ER with a left upper posterior chest wall that comes whenever he take a deep breath and it is induced by laying on that side. The patient CAT scan of the chest shows possible infiltrate for that the patient will be covered with antibiotic although he have no significant symptoms of coughing or fever. The patient also take anticoagulant because of a history of A-fib and there is no suspicion for PE The patient blood workup showed no acute significant pathology and he was feeling better after being treated with a Toradol and Norflex in the ER Patient discharged home with prednisone and Norflex here he did take Nora for his back in addition to instruction not to take his Robaxin although he might not be has been taking it but he was instructed to stop it in addition to being cautious when using Nora and Norflex The patient is to follow up with primary care physician in next 2-3 days or to return to the emergency department should any of the signs or symptoms worsen or new symptoms develop. The patient agrees with the following Diagnosis and Treatment plan and the patient will be discharged home. Lab Data Labs: Lab Results 11/29/23 Range/Units 08:18 WBC 11.5 H (4.0-11.0) 10^3/uL RBC 4.03 L (4.70-6.10) 10^6/uL Hgb 12.5 L (14.0-18.0) g/dL Hct 37.8 L (42.0-54.0) % MCV 93.8 (80.0-94.0) fL MCH 31.0 (25.9-34.0) pg MCHC 33.1 (29.9-35.2) g/dL RDW 12.3 (11.0-15.0) % Plt Count 177 (150-450) 10^3/uL MPV 10.2 (9.5-13.5) fL Neut % (Auto) 69.6 (43.0-75.0) % Lymph % (Auto) 20.0 L (20.5-60.0) % [place] % (Auto) 8.9 (1.7-12.0) % Eos % (Auto) 0.8 L (0.9-7.0) % Baso % (Auto) 0.4 (0.2-2.0) % Neut # (Auto) 8.0 H (1.4-6.5) 10^3/uL Lymph # (Auto) 2.3 (1.2-3.8) 10^3/uL [place] # (Auto) 1.0 H (0.3-0.8) 10^3/uL Eos # (Auto) 0.1 (0.0-0.7) 10^3/uL Baso # (Auto) 0.1 (0.0-0.1) 10^3/uL Abs Immat Gran (auto) 0.04 H (0.00-0.03) 10^3/uL Imm/Tot Granulo (auto) 0.3 (0.0-0.5) % Sodium 139 (136-145) mmol/L Potassium 4.0 (3.5-5.1) mmol/L Chloride 101 (98-107) mmol/L Carbon Dioxide 30.7 (21.0-32.0) mmol/L Anion Gap 11.3 BUN 19.0 H (7.0-18.0) mg/dL Creatinine 0.95 (0.70-1.30) mg/dL Est GFR ( Amer) >60 (>=60) Est GFR (Non-Af Amer) >60 (>=60) BUN/Creatinine Ratio 20.0 Glucose 123 H (74-106) mg/dL Calcium 9.3 (8.5-10.1) mg/dL Total Bilirubin 0.6 (0.2-1.0) mg/dL AST 18 (15-37) U/L ALT 27 (16-63) U/L Alkaline Phosphatase 116 (46-116) U/L Troponin I High Sens 6.9 (4.0-76.1) pg/mL Total Protein 7.8 (6.4-8.2) g/dL Albumin 3.6 (3.4-5.0) g/dL Globulin 4.2 g/dL Albumin/Globulin Ratio 0.9 Discharge Plan Discharge Chief Complaint: Back Pain/Injury Clinical Impression: Chest pain, pleuritic Patient Disposition: Home, Self-Care Time of Disposition Decision: 10:02 Condition: Good Mode of Transportation: Private Vehicle Prescriptions / Home Meds: New prednisone 20 mg tablet 40 mg PO DAILY 5 Days Qty: 10 0RF azithromycin [Zithromax Z-Lui] 250 mg tablet See Rx Instructions .ROUTE .COMPLEX Qty: 6 0RF Rx Instructions: For 250 mg dose pack: take 500 mg today (day 1), then 250 mg for 4 days (days 2-5) orphenadrine citrate 100 mg tablet extended release 100 mg PO BID PRN (Reason: muscle spasm ) Qty: 10 0RF Discontinued acetaminophen 500 mg capsule 500 mg PO .q12hrs PRN (Reason: fever or pain) No Action Xarelto 10 mg tablet 20 mg PO DAILY finasteride 5 mg tablet 5 mg PO DAILY metoprolol succinate 25 mg tablet extended release 24 hr 25 mg PO DAILY sertraline 100 mg tablet 100 mg PO DAILY tamsulosin 0.4 mg capsule 0.8 mg PO DAILY cholecalciferol (vitamin D3) [Vitamin D3] 10 mcg (400 unit) capsule 10 mcg PO DAILY famotidine 20 mg tablet 20 mg PO Q12H PRN (Reason: abdominal discomfort) esomeprazole magnesium 40 mg capsule,delayed release(DR/EC) 40 mg PO Q24H Arnuity Ellipta 100 mcg/actuation blister with device 1 inh INHALATION Q24H albuterol sulfate 90 mcg/actuation HFA aerosol inhaler 2 inh INHALATION Q4H PRN (Reason: shortness of breath or wheezing) lysine [L-Lysine] 500 mg tablet 1,000 mg PO DAILY Instructions: Chest Pain (DC) Stand Alone Forms: Portal Instructions Referrals: Physician,Non-Staff, MD [Primary Care Provider] - 1 week
== END 2023-11-29 10:34 | disposition home or self-care (01) ==
PROVIDERS: Emergency Provider Emergency Medicine
DX: R07.81 Pleurodynia (principal); I48.91 Unspecified atrial fibrillation; Z87.442 Personal history of urinary calculi; Z79.01 Long term (current) use of anticoagulants; Z79.899 Other long term (current) drug therapy
CPT/HCPCS: 36415; 71250; 80053; 84484; 85025; 93005; 96374; 96375; 99285; J1885; J2360